=== PATIENT | female | born 1970 ===

== ENCOUNTER 2018-03-17 08:30 | Outpatient (CLI) | payer OTHER | END 2018-03-17 08:31 | disposition home or self-care (01) | LOC: C.PAT 08:30 | DX: Z85.3 Personal history of malignant neoplasm of breast (principal) ==

== ENCOUNTER 2018-03-26 11:55 | Day surgery (SDC) | payer OTHER ==
[2018-03-17 08:44] VITALS: BMI 24.9
[2018-03-26] MEDS ORDERED: Propofol 10 mg/ml Inj (20 ML) ONE (13:59)
[2018-03-26] MEDS ORDERED: Lidocaine 1% 20 MG/2 ML PF AMP ONE (14:05)
[2018-03-26] MEDS ORDERED: Bupivacaine 0.25% 20 ML INJ IJ ONE (14:05)
--- NOTE | 2018-03-26 14:37 | PCM.SURG1 ---
Surgeon's Initial Post Op Note - Surgeon's Notes Surgeon: Dr. Aragon Ocean Lifeguard Specialist: Tino Morton [id number] Type of Anesthesia: IV Sedation, Local Pre-Operative Diagnosis: portacath Operative Findings: see operative dictation Post-Operative Diagnosis: same Operation Performed: portacath removal of the right side Specimen/Specimens Removed: portacath Estimated Blood Loss: EBL {In ML}: 1 Blood Products Given: N/A Drains Used: No Drains Post-Op Condition: Good Date of Surgery/Procedure: 03/26/18 Time of Surgery/Procedure: 14:36
[2018-03-26 14:43] VITALS: TEMP 97
[2018-03-26] MEDS ORDERED: HYDROmorphone 0.5 mg/0.5 ml ISec IVP PRN (14:55)
[2018-03-26 15:38] VITALS: PULSE 88; RESP 14
[2018-03-26 15:52] VITALS: BP 123/69; O2SAT 98
--- NOTE | 2018-04-01 21:32 | OP ---
PROCEDURE DATE: 03/26/2018 PREOPERATIVE DIAGNOSIS: Right subclavian Port-A-Cath, status post chemotherapy for breast cancer. POSTOPERATIVE DIAGNOSIS: Right subclavian Port-A-Cath, status post chemotherapy for breast cancer. PROCEDURE: Removal of right subclavian Port-A-Cath. SURGEON: Daniel Aragon MD [employer] SUPERVISOR: Alex Pena D.O. ANESTHESIA: Local with IV sedation; CRNA. Jaqueline DESCRIPTION OF PROCEDURE: With the patient in the supine position, having received IV sedation, the right upper chest was prepped and draped in the usual sterile manner. The skin around the insertion site for the palpable right subclavian Port-A-Cath was infiltrated with 1% lidocaine and a transverse skin incision was made down to the hub of the port. The catheter was identified and dissected free from the surrounding subcutaneous tissue. The catheter was then grasped and extracted from the vein, and then using gentle traction on the catheter, the port was sharply freed from the subcutaneous pocket and removed. The operative site was examined for hemostasis and the incision was closed with running subcuticular suture of 4-0 Monocryl and Dermabond. The patient tolerated the procedure well and transferred to the recovery room in stable condition. Estimated blood loss for the procedure was 1 mL. Daniel Aragon MD
== END 2018-03-26 16:20 | disposition home or self-care (01) ==
LOC: C.SDS 11:55
PROVIDERS: ATTEND Specialist
DX: Z45.2 Encounter for adjustment and management of vascular access device (principal); Z85.3 Personal history of malignant neoplasm of breast; Z92.21 Personal history of antineoplastic chemotherapy
CPT/HCPCS: 36590; 88300; J1170; J2001; J2704; J3010